=== PATIENT | male | born 1980 | race Caucasian/White ===

== ENCOUNTER 2023-03-23 10:52 | Emergency (ER) | payer SELFPAY ==
[2023-03-23 11:06] VITALS: BP 176/101; PULSE 93; RESP 18; TEMP 36.7; O2SAT 97
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
[2023-03-23 11:54] VITALS: RESP 20; O2SAT 97
[2023-03-23] MEDS: fentaNYL 50 mcg/mL INJ 2mL IVP (11:54)
--- NOTE | 2023-03-23 11:54 | ECG_ITS ---
[facility] Test Date: 2023-03-23 Pat Name: lAlan Myles Department: Room: Gender: Male Sports Writer: : 1980 Requested By: Perfecto Thompson Order Number: [id number] Oswald MD: Vicenta Waterman M.D. Measurements Intervals [place] Rate: 93 P: 60 MO: 188 QRS: 64 QRSD: 71 T: 75 QT: 352 QTc: 438 Interpretive Statements SINUS RHYTHM POSSIBLE LEFT ATRIAL ENLARGEMENT [-0.1mV P-WAVE IN V1/V2] NONSPECIFIC ST & T-WAVE ABNORMALITY No previous ECG available for comparison Electronically Signed On 03-23-2023 13:22:53 CDT by Vicenta Waterman M.D. [email or web address]
[2023-03-23] MEDS: ondansetron 2 mg/ML SDV 2 mL 4 MG IVP (11:55)
[2023-03-23] MEDS: sodium chloride 0.9% 500 ML 999 ML IV (11:57)
[2023-03-23] MEDS: tetanus-dipt-pertussis 0.5 mL SDV IM (11:58)
[2023-03-23 12:00] LABS: Basophils % 0.3 %; Eosinophils % 0.1 %; Hematocrit 54.1 % (42.0-52.0); Lymphocytes # 1.3 10^3/uL (0.8-4.8); Lymphocytes % 13.1 %; Mean Corpuscular HGB Conc 35.1 g/dL (30.0-36.0); Mean Corpuscular Hemoglobin 36.1 pg (28.0-34.0); Mean Corpuscular Volume 102.7 fl (80-94); Mean Platelet Volume 10.4 fL (7.4-10.4); Monocytes # 0.9 10^3/uL (0.2-0.9); Monocytes % 9.3 %; Neutrophils # 7.43 10^3/uL (1.8-7.7); Nucleated Red Blood Cells % 0 %; Platelet Count 244 10^3/cmm (130-400); Red Blood Count 5.27 10^6/uL (4.1-5.3); Red Cell Distribution Width 14.3 % (12.1-15.1); White Blood Count 9.7 10^3/uL (4.0-10.0)
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
[2023-03-23 12:17] LABS: Anion Gap 17.5 (5-19); Blood Urea Nitrogen 3 mg/dL (6-20); Calcium 9.4 mg/dL (8.5-10.5); Carbon Dioxide 26 mmol/L (22-29); Chloride 94 mmol/L (98-107); Glucose 118 mg/dL (65-115); Lactic Sepsis W/Reflex 2.4 mmol/L (0.5-2.2); Osmolality Calculated 276 mOsm/kg (285-295); Potassium 3.5 mmol/L (3.5-5.1); Sodium 134 mmol/L (136-145)
[2023-03-23 12:33] LABS: Add Urine Microscopic? NO; Charge for UA Resulting for Rev
[2023-03-23 12:36] VITALS: PULSE 96; O2SAT 95
[2023-03-23 12:39] LABS: Alcohol Level < 10 mg/dL (0-10)
[2023-03-23] MEDS: iohexol 350 mg/mL 500 mL Btl (per mL) IV (12:42)
[2023-03-23 12:46] LABS: Bilirubin Urine Neg (Negative); Blood Urine Neg (Negative); Glucose Urine UA Norm (Normal); Ketones Urine Negative (Negative); Nitrate Urine Negative (Negative); Protein Urine Neg (Negative); Specific Gravity, Urine 1.005 (1.005-1.030); Urine Appearance Clear (CLEAR); Urine Color Yellow (Yellow); pH Urine 6.5 (5-7)
[2023-03-23 12:47] LABS: Reflex Lactate Order REFLEX LACTIC ORDERD
[2023-03-23 12:47] LABS: Leukocyte Esterase Urine Negative (Negative); Urobilinogen Urine 1 mg/dL (Negative)
[2023-03-23 12:54] LABS: Amphetamines Screen Urine Negative (Negative); Barbiturates Screen Urine Negative (Negative); Benzodiazepines Screen Urine Negative (Negative); Cocaine Screen Urine Negative (Negative); Opiate Screen Urine Negative (Negative); PCP Screen Urine Negative (Negative); THC Screen Urine Positive (Negative)
[2023-03-23 13:00] VITALS: BP 160/111; PULSE 92; O2SAT 92
[2023-03-23] MEDS: tetracaine 0.5% Op Soln 4 mL Btl 1 DROP EYE-LEFT (14:06)
[2023-03-23] MEDS: fluorescein 1 mg Strip EYE-LEFT (14:06)
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
[2023-03-23] MEDS: ofloxacin 0.3% Op Soln 5 mL Btl 2 DROP EYE-LEFT (14:14)
[2023-03-23 14:30] VITALS: BP 165/91; PULSE 88; O2SAT 93
[2023-03-23 14:59] LABS: Lactic Acid level (Lactate) 2.3 mmol/L (0.5-2.2)
--- NOTE | 2023-03-24 10:43 | DCPLANNER ---
Addendum entered by Barbie Nicholson 04/04/23 10:28: Patient did attend this appointment with ortho Addendum entered by Barbie Nicholson 03/25/23 14:44: Patient has a follow up appointment scheduled for March at 8:30 with Padmini Babcock at ortho. Addendum entered by Barbie Nicholson 03/24/23 15:43: electronics commodity manager received the following message from the ortho clinic regarding follow up appointment: attempt made to contact patient - mailbox is full - when hes calls back we can get him scheduled w/ padmini babcock Original Note: electronics commodity manager had message to schedule a follow up appointment for patient with ortho. electronics commodity manager sent patients information to the front office staff at ortho. Patients information will be printed and reviewed. Clinic will call patient with appointment information.
--- NOTE | 2023-03-24 10:46 | DCPLANNER ---
manager social media had message to speak with patient about getting established with a primary care physician - no answer at this time.
== END 2023-03-23 15:37 | disposition home or self-care (01) ==
PROVIDERS: Emergency Provider Nurse Practitioner
DX: S06.0X0A Concussion without loss of consciousness, initial encounter (principal); V43.52XA Car driver injured in collision with other type car in traffic accident, initial encounter; W22.10XA Striking against or struck by unspecified automobile airbag, initial encounter; S62.307A Unspecified fracture of fifth metacarpal bone, left hand, initial encounter for closed fracture; S05.02XA Injury of conjunctiva and corneal abrasion without foreign body, left eye, initial encounter
CPT/HCPCS: 36415; 70450; 71045; 71260; 72125; 73030; 73060; 73090; 73120; 74177; 80048; 80306; 80307; 81003; 83605; 85025; 90471; 90715; 93005; 96361; 96374; 96375; 99285; J2405; J3010; J7040; Q9967

== ENCOUNTER → 2023-03-27 08:39 | Outpatient (BNVA) | payer SELFPAY | PROVIDERS: Visit Provider Physician Assistant | DX: S62.327G Displaced fracture of shaft of fifth metacarpal bone, left hand, subsequent encounter for fracture with delayed healing (principal); V49.9XXD Car occupant (driver) (passenger) injured in unspecified traffic accident, subsequent encounter | CPT/HCPCS: 73130 ==

== ENCOUNTER 2023-03-27 11:23 | Outpatient (CLI) | payer SELFPAY | END 2023-03-27 11:24 | disposition home or self-care (01) | LOC: SPT 11:24 | PROVIDERS: Visit Provider Physician Assistant | DX: Z46.89 Encounter for fitting and adjustment of other specified devices (principal); S62.307D Unspecified fracture of fifth metacarpal bone, left hand, subsequent encounter for fracture with routine healing; X58.XXXD Exposure to other specified factors, subsequent encounter | CPT/HCPCS: 97760; L3984 ==

== ENCOUNTER → 2023-04-03 14:58 | Outpatient (BNVA) | payer SELFPAY | PROVIDERS: Visit Provider Student in an Organized Health Care Education/Training Program | DX: S62.307G Unspecified fracture of fifth metacarpal bone, left hand, subsequent encounter for fracture with delayed healing (principal); V89.2XXD Person injured in unspecified motor-vehicle accident, traffic, subsequent encounter | CPT/HCPCS: 73130 ==

== ENCOUNTER → 2023-05-02 10:32 | Outpatient (BNVA) | payer SELFPAY | PROVIDERS: Visit Provider Student in an Organized Health Care Education/Training Program | DX: S62.307A Unspecified fracture of fifth metacarpal bone, left hand, initial encounter for closed fracture; X58.XXXA Exposure to other specified factors, initial encounter | CPT/HCPCS: 73130 ==

== ENCOUNTER → 2023-08-11 08:05 | Outpatient (BNVA) | payer BC, SELFPAY | PROVIDERS: Visit Provider Nurse Practitioner Family | DX: M10.9 Gout, unspecified (principal) | CPT/HCPCS: 84550 ==

== ENCOUNTER → 2025-03-01 09:04 | Outpatient (BNVA) | payer BC, SELFPAY | PROVIDERS: PCP Family Medicine; Visit Provider Family Medicine | DX: Z13.6 Encounter for screening for cardiovascular disorders (principal) | CPT/HCPCS: 80053; 80061; 84443; 85025 ==

== ENCOUNTER 2025-03-20 07:52 | Emergency (ER) | payer BC, SELFPAY ==
--- OUTSIDE RECORDS SUMMARY | 2025-03-20 07:55 | XMS_ITS | Clinical Summary ---
Author Organization [facility] Address [address] [place]: Epic Prelude ADT [place] [address] Care Team Providers Care Oil Gauger Name Role Phone Unavailable Primary Care Provider Unavailabl e Immunizations Immunization Administration Dates Next Due (M-M-R II/PRIORIX)(12 MO UP) MEASLES, MUMPS AND RUBELLA VIRUS VACCINE, 0.5 ML IM/SUBCUT 03/26/1982 (TDVAX)(7 YRS UP) TETANUS AN D DIPHTHERIA TOXOIDS, ADSORBED (2 LF OF TETANUS TOXOID AND 2 LF OF DIPHTHERIA TOXOID), 0.5ML (PF), IM 05/18/1996 Dt Dtp Dtap Vaccine 03/18/1986, 3,08/28/1981,1980,02/27/1981 IPV/OPV 03/18/1986, 3,06/26/1981,1980 Social History Tobacco Use Types Packs/Day Years Used Date Smoking Tobacco: Never Assessed Sex and Gender Information Value Date Recorded Sex Assigned at Not on file 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
--- OUTSIDE RECORDS SUMMARY | 2025-03-20 07:55 | XMS_ITS | Encounter Summary ---
Author Organization [facility] Address [address] [place] [address] Care Team Providers Care Manager Ambulatory Name Role Phone Unavailable Primary Care Provider Unavailabl e Encounter Details Date Type Department Care Team (Latest Contact Info) Description 01/18/2002 Outpatient Historical [facility] Family Medicine [place] [address] [facility] [place] [address] Rian Ewing MD [address] 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
--- OUTSIDE RECORDS SUMMARY | 2025-03-20 07:55 | XMS_ITS | Encounter Summary ---
Author Organization [facility] Address [address] [place] [address] Care Team Providers Care Silk Blocker Name Role Phone Unavailable Primary Care Provider Unavailabl e Encounter Details Date Type Department Care Team (Latest Contact Info) Description 01/22/2002 Outpatient Historical [facility] Medicine [place] [address] [facility] [address] [place] [address] Rian Ewing MD [address] 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
--- OUTSIDE RECORDS SUMMARY | 2025-03-20 07:55 | XMS_ITS | Encounter Summary ---
Author Organization [facility] Address [address] [place] [address] Care Team Providers Care Blasting Entry Specialist Name Role Phone Unavailable Primary Care Provider Unavailabl e Encounter Details Date Type Department Care Team (Latest Contact Info) Description 04/23/1999 Outpatient Historical [facility] Evan Jacobs, James Kelley MD [address] [place] [phone] Unspecified sinusitis (chronic) (Primary Dx) Social History Tobacco Use Types Packs/Day Years Used Date Smoking Tobacco: Never Assessed Sex and Gender Information Value Date Recorded Sex Assigned at Not on file 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
--- OUTSIDE RECORDS SUMMARY | 2025-03-20 07:55 | XMS_ITS | Encounter Summary ---
Author Organization [facility] Address [address] [place] [address] Care Team Providers Care Core Setter Name Role Phone Unavailable Primary Care Provider Unavailabl e Encounter Details Date Type Department Care Team (Latest Contact Info) Description 02/01/2002 Outpatient Historical [facility] Medicine [place] [address] [facility] [address] [place] [address] Rian Ewing MD [address] [facility] [address] [place] [phone] SYNOVITIS NEC (Primary Dx); ELBOW ENTHESOPATHY NOS Social History Tobacco Use Types Packs/Day Years Used Date Smoking Tobacco: Never Assessed Sex and Gender Information Value Date Recorded Sex Assigned at Not on file 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
--- OUTSIDE RECORDS SUMMARY | 2025-03-20 07:55 | XMS_ITS | Encounter Summary ---
Author Organization [facility] Address [address] [place] [address] Care Team Providers Care Silk Screen Printer Name Role Phone Unavailable Primary Care Provider Unavailabl e Encounter Details Date Type Department Care Team (Latest Contact Info) Description 01/25/2002 Outpatient Historical [facility] Medicine [place] [address] [facility] [address] [place] [address] Rian Ewing MD [address] [facility] [address] [place] [phone] SYNOVITIS NEC (Primary Dx); ELBOW ENTHESOPATHY NOS Social History Tobacco Use Types Packs/Day Years Used Date Smoking Tobacco: Never Assessed Sex and Gender Information Value Date Recorded Sex Assigned at Not on file 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
[2025-03-20 07:57] VITALS: BP 142/113; PULSE 103; RESP 17; TEMP 36.6; O2SAT 95; BMI 26.6
--- NOTE | 2025-03-20 08:58 | XRR_ITS ---
PROCEDURE INFORMATION: Exam: XR Left Foot Exam date and time: 03/20/2025 9:14 AM Age: 44 years old Clinical indication: Injury or trauma; Other: Wood fell on foot; Blunt trauma; Left TECHNIQUE: Imaging protocol: Radiologic exam of the left foot. Views: 3 or more views. COMPARISON: No relevant prior studies available. FINDINGS: Bones/joints: No acute fracture or malalignment. No worrisome lytic or blastic osseous lesion. No appreciable cortical erosion or periosteal reaction. Joint spaces are preserved. Soft tissues: Mild dorsal forefoot soft tissue swelling. No radiopaque foreign body or gas. XR/XR foot LT min 3V* [id number] IMPRESSION: 1. No acute fracture or malaligment. 2. Mild dorsal forefoot soft tissue swelling. No radiopaque foreign body or gas.
--- NOTE | 2025-03-20 08:58 | W.ED.EXTPRO ---
HPI - Extremity Problem General: Chief complaint: Extremity Injury, Lower Stated complaint: rt foot inj Time Seen by Provider: 03/20/25 08:32 History of Present Illness: Chief complaint is left foot injury. Patient states 4 days ago he was at work and dropped a piece of wood on his left foot. He denies any break in the skin. No numbness or tingling distally. No ankle pain or proximal injury. Denies any head neck chest or abdominal pain or injury. No fever. He is not on blood thinners. It was not going away and still hurts to put weight on it so he came here. Related Data Previous Rx's ?Medication ?Instructions ?Recorded buspirone 5 mg tablet 5 mg PO BID PRN anxiety #60 tabs 03/01/25 celecoxib 200 mg capsule (Celebrex) 200 mg PO BID #30 caps 03/01/25 escitalopram oxalate 5 mg tablet 5 mg PO DAILY #30 tabs 03/01/25 (Lexapro) Allergies Allergy/AdvReac Type Severity Reaction Status Date / Time No Known Allergies Allergy Verified 03/01/25 08:28 [facility] ED PFSH: Family History Grandfather Heart disease Family history of premature coronary artery disease Diabetes mellitus, type 2 Grandmother Heart disease Family history of premature coronary artery disease Mother Family history of premature coronary artery disease Heart disease Social History Smoking and tobacco/nicotine status: current every day tobacco/nicotine user Alcohol intake: current Alcohol intake frequency: few times a month Substance/Drug Use: current Substance/Drug use frequency: Special occassions/opportunity only Physical Exam Narrative: EXAM NARRATIVE: Alert anxious. No acute distress. Neck is supple. Pupils equal and reactive. Full range ocular motion. Heart regular rhythm. Lung sounds are clear. Abdomen soft nontender. Extremities warm well-perfused. He moves his neck and back freely. Skin is warm and dry. No break in the skin over the foot. He has some tenderness and swelling over the dorsum of the left foot with some tenderness. He has intact motor and sensation distally though somewhat limited due to pain. No pain with range of motion of the ankle or tenderness over the ankle and no tenderness over the leg or pain with movement of the knee or hip. Course Vital Signs: Vital signs: Vital Signs Temperature 97.9 F 03/20/25 07:57 Pulse Rate 103 H 03/20/25 10:19 Respiratory Rate 17 03/20/25 07:57 Blood Pressure 156/93 03/20/25 10:19 Pulse Oximetry 95 03/20/25 10:19 Oxygen Delivery Me thod Room Air 03/20/25 07:57 MDM - Extremity (Nontraumatic) Medical Decision Making Patient was walking out of the room to leave when I walked in. He states he was leaving to go outside. Patient reports dropping piece of wood on the dorsum of the left foot 4 days ago at work. He states this is not Worker's Comp. No break in the skin. I recommended getting x-ray to evaluate for fracture. Patient agrees with plan after informed discussion. I discussed pain treatment options. I advised limits of plain film. I do not see evident fracture on plain film. Patient was asleep in the room. He wakes to voice. He is alert and oriented. I discussed with him other potential causes of redness and swelling of the dorsum of the foot including infection. He denies having diabetes. He denies any drug use. He states he does drink alcohol occasionally but no drug use and no fever and he states he is certain it is from dropping something on it because it was completely fine and it swelled up red and painful immediately after dropping the heavy wood on it. I advised him that I cannot differentiate trauma from infection based on his current exam and discussed doing further evaluation. Patient states he needs to get a lot of work to do and he does not think and things infected and is wanting discharge. He declines crutches and states he has his own at home. I ordered a postop shoe. Patient was tachycardic and hypertensive at triage. Patient was not tachycardic on my exam. Patient denies fever or systemic symptoms or malaise. I advised elevation and limits of plain film and not to put weight on if it causes pain and advised immediate return for any increased pain or redness or swelling to suggest infectious cause or if he changes his mind for any reason. Patient capable and informed and declining any further treatment or evaluation. I advise close outpatient follow-up. He states he needs a note for work for a few days. Lab Data Radiology Impressions Foot X-Ray 03/20/25 08:58 IMPRESSION: 1. No acute fracture or malaligment. 2. Mild dorsal forefoot soft tissue swelling. No radiopaque foreign body or gas. All radiology interpretation(s) finalized by discharge Discharge Plan Discharge Patient Disposition: Home Clinical Impression: Contusion of foot, left Condition: Stable Prescriptions: No Action escitalopram oxalate [Lexapro] 5 mg tablet 5 mg PO DAILY Qty: 30 0RF buspirone 5 mg tablet 5 mg PO BID PRN (Reason: anxiety) Qty: 60 0RF celecoxib [Celebrex] 200 mg capsule 200 mg PO BID Qty: 30 1RF Discharge Orders: Discharge ED (Routine); Ordered 03/20/25 Ordered By: Manish Owens Referrals: Ade Yeung DO [Primary Care Provider, Family Practice] Patient Instructions: Opioid Safety, Pain Management, Patient Portal & Nicky Instructions Activity Restrictions/Additional Instructions: Keep your foot elevated. Do not put weight on your foot if causes pain. Return immediately if you change your mind for any reason or signs of infection such as increased pain or redness or swelling or fever, any worse or concerns. Follow-up for recheck in 1 to 2 days with your doctor. Stand Alone Forms: Work/School Release Print Language: Macedonian Coding Level of Care Code ED Crate Builder for Deangelo Bunn
[2025-03-20 10:19] VITALS: BP 156/93; PULSE 103; O2SAT 95
== END 2025-03-20 10:34 | disposition home or self-care (01) ==
PROVIDERS: Emergency Provider Emergency Medicine; PCP Family Medicine
DX: S90.32XA Contusion of left foot, initial encounter (principal); Z72.0 Tobacco use; W20.8XXA Other cause of strike by thrown, projected or falling object, initial encounter
CPT/HCPCS: 73630; 99283

== ENCOUNTER → 2025-04-07 08:40 | Outpatient (BNVA) | payer BC, SELFPAY | PROVIDERS: PCP Family Medicine; Visit Provider Family Medicine | DX: E87.5 Hyperkalemia (principal) | CPT/HCPCS: 80048 ==